=== PATIENT | female | born 1975 | race Hispanic/Latino ===

== ENCOUNTER 2016-08-06 15:34 | Emergency (ER) | payer OTHER ==
[~2016-08-06] VITALS: Ht 157.5 cm; Wt 104.3 kg
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
[2016-08-06 17:35] LABS: ABSOLUTE BASOPHIL COUNT 0 /CUMM (0.0-0.2); ABSOLUTE EOSINOPHIL COUNT 0 /CUMM (0.0-0.7); ABSOLUTE GRANULOCYTE CT 8.6 /CUMM (1.4-6.5); ABSOLUTE LYMPH COUNT 2.4 /CUMM (1.2-3.4); ABSOLUTE MONOCYTE COUNT 0.7 /CUMM (0.10-0.60); BASOPHIL % 0.3 % (0.0-2.0); EOSINOPHIL % 0.4 % (0-5); GRANULOCYTE % 72.6 % (42.2-75.2); HEMATOCRIT 34.4 % (37-47); MEAN CORPUSCULAR HGB 20.3 PG (27.0-31.0); MEAN CORPUSCULAR HGB CONC 30.5 G/DL (33.0-37.0); MEAN CORPUSCULAR VOLUME 66.7 FL (81.0-99.0); MEAN PLATELET VOLUME 7.9 FL (7.4-10.4); PLATELET COUNT 367 /CUMM (130-400); RED BLOOD CELL CT 5.17 /CUMM (4.20-5.40); WHITE BLOOD CELL COUNT 11.8 /CUMM (4.8-10.8)
[2016-08-06] MEDS ORDERED: PREDNISONE20 M1 PO (21:03)
[2016-08-06] MEDS ORDERED: DOXYCYCLINE HY100 M2 PO (21:04)
[2016-08-06] MEDS ORDERED: ADVAIR 250-501 EACH INH (21:04)
[2016-08-06] MEDS ORDERED: PROVENTIL HFA6.7 GM INH (21:04)
[2016-08-06] MEDS ORDERED: NASONEX17 GM NASB (21:04)
[2016-08-06] MEDS ORDERED: AMLODIPINE BESYL5 M1 PO (21:44)
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
[2016-08-07 12:00] VITALS: BP 173/92
== END 2016-08-07 12:21 ==
LOC: ERH 15:34
PROVIDERS: Physician Assistant
DX: F41.9 Anxiety disorder, unspecified (principal)
CPT/HCPCS: 80307; 81001; 81025; 93005; 93010; G0463; G0480

== ENCOUNTER → 2016-10-27 | Day surgery (SDC) | payer OTHER ==
[~2016-10-27] VITALS: Ht 160 cm; Wt 110.7 kg
[~2016-10-27] MED LIST: ADVAIR 250-501 EACH INH; AMLODIPINE BESYL5 M1 PO; DOXYCYCLINE HY100 M2 PO; NASONEX17 GM NASB; PREDNISONE20 M1 PO; PROVENTIL HFA6.7 GM INH
--- NOTE | 2016-10-31 16:52 | Operative Report ---
Operative/Inv Procedure Report Surgery Date: 10/31/16 Name of Procedure: d&c HYSTEROSCOPY Pre-Operative Diagnosis: mETROMENORRHAGIA Post-Operative Diagnosis: SAME Estimated Blood Loss: less than 50ml Surgeon/Taffy Puller: HARIKA SHELLEY MD Anesthesia: moderate sedation Operative/Procedure Note Note: Patient was taken to the operating room placed in dorsal supine position. After adequate anesthesia, patient was prepped and draped for surgery. Examination under anesthesia was performed. CO2 tenaculum was placed on the anterior lip of the cervix gentle downward traction was used. The cervix was dilated 29 Hegar to left insertion of the hysteroscope. Under direct visualization to hysteroscopy was performed using gas hysteroscope was removed and endocervical curettage was performed. And endometrial curettage was performed. All instruments removed from the vagina. The counts were correct the patient was awakened from anesthesia. And transported to recovery room awake and alert. Findings: Normal size uterus no adnexal masses normal cervix normal uterine lining
== END ==
LOC: STS 01:46
DX: N92.1 Excessive and frequent menstruation with irregular cycle (principal); J45.909 Unspecified asthma, uncomplicated
CPT/HCPCS: 81025; 88305; J2250

== ENCOUNTER → 2017-07-20 | Day surgery (SDC) | payer OTHER ==
[~2017-07-20] VITALS: Ht 160 cm; Wt 2.4 kg
--- NOTE | 2017-07-20 18:05 | Operative Report ---
Operative/Inv Procedure Report Surgery Date: 07/20/17 Name of Procedure: D&C cryoablation the uterus under ultrasound guidance Pre-Operative Diagnosis: Menorrhagia Post-Operative Diagnosis: Menorrhagia Estimated Blood Loss: less than 50ml Surgeon/Technical Analyst: Jose ETIENNE,Anita Hill Anesthesia: moderate sedation Operative/Procedure Note Note: Patient was taken the operating room after adequate placement of LMA and anesthesia patient was placed in dorsal supine position the vagina from dorsal fashion the bladder was catheterized with [place] examination of anesthesia will perform a Graves speculum with lateral retractor was placed into the vagina and a single-tooth tenaculum placed on the lip of the cervix gentle downward traction performed patient tolerated that well at this point the curet was placed into the uterus and sharp curettage the endometrial iodoform Procrit Tyzine cervical was performed 2 specimens were sent to pathology under direct visualization of the bladder and felt a cryoprobe was placed into the uterus and an iceberg was formed by scalpel was heated the probe was removed and the patient was returned to prone position WAS removed from vagina patient was awakened from anesthesia and transferred recovery room awake and alert counts correct Findings: Uterus slightly enlarged no adnexal masses otherwise normal anatomy
--- NOTE | 2017-07-21 09:11 | ULTRASOUND REPORT ---
EXAMINATION: Intraoperative ultrasound CLINICAL INFORMATION: 42-year-old female with metromenorrhagia COMPARISON: None. TECHNIQUE: Intraoperative ultrasound was provided for use by Dr. Garcia. A radiologist was not present during imaging. A total of 8 images were saved to PACS. FINDINGS\E\IMPRESSION: Intraoperative ultrasound provided for use by Dr. Garcia. Please see operative note for detailed findings.
== END ==
LOC: STS 03:11 → XRY 12:30
DX: N92.0 Excessive and frequent menstruation with regular cycle (principal); N72 Inflammatory disease of cervix uteri; J45.909 Unspecified asthma, uncomplicated
CPT/HCPCS: 76998; 81025; J0131; J2250

== ENCOUNTER 2017-10-26 06:33 | Inpatient (IN) | payer OTHER ==
[~2017-10-26] VITALS: Ht 160 cm; Wt 112.9 kg
[~2017-10-26 06:33] MED LIST changes: +ADVAIR 100-501 EACH INH; +VENTOLIN HFA18 GM INH
--- NOTE | 2017-10-26 12:17 | Operative Report ---
Operative/Inv Procedure Report Surgery Date: 10/26/17 Name of Procedure: Supracervical hysterectomy and removal of the stents Pre-Operative Diagnosis: Menorrhagia Post-Operative Diagnosis: Same Estimated Blood Loss: 500 Surgeon/Hair Worker: Jose ETIENNE,Anita Hill and Dr. Stef Pascual Anesthesia: general endotracheal tube, block Operative/Procedure Note Note: Procedure note patient was taken to the operating room placed supine position after adequate anesthesia patient was placed in dorsal supine position the vagina was prepped and draped so fashion Dr. Lew placed stents patient was returned spine position the abdomen was prepped and draped so fashion. 2 finger breadths of symptoms pubis in midline skin was cut carried down to rectus fascia. Rectus fascia was dissected bluntly as well as sharply off of the rectus sheath the peritoneal cavity was entered high into the abdomen bluntly Roca O'Vipul placed in usual fashion at this point patient was placed in Trendelenburg she tolerated this well. On at this point the uterus was identified on elevated with a 4 tenaculum the round ligament was suture ligated on the left 1 a ligament on the right was suture ligated times one the bladder flap was developed sharply as well as bluntly sequentially cervical branches uterine artery were clamped and cut and oversewn using 0 to level of the external os specimen was removed using a Bovie the cuff was oversewn running locking suture was indicated interrupted [id number] hemostasis was apparent. The abdomen was area close amounts once until clear I interrupted [id number] were used for hemostasis once again I at this point Mark was applied the surgical cuff tension was removed from the retractor so that bleeding could be observed on hemostasis was apparent. At this point all once was removed from the abdomen peritoneum was reapproximated 0 fascia was reprocessed and to continue sutures #1 on the skin was reapproximated using darren after Bovie coagulation substance tissue sterile dressing was applied the vagina was irrigated found to be hemostatic oral instruments removed from the vagina the stents were removed intact patient was awakened from anesthesia and transferred recovery room awake alert counts correct Findings: Slightly enlarged uterus consistent with adenomyosis normal ovaries bilaterally otherwise normal anatomy
[2017-10-26 16:27] LABS: ABSOLUTE BASOPHIL COUNT 0 /CUMM (0.0-0.2); ABSOLUTE EOSINOPHIL COUNT 0 /CUMM (0.0-0.7); ABSOLUTE GRANULOCYTE CT 14.4 /CUMM (1.4-6.5); ABSOLUTE LYMPH COUNT 0.2 /CUMM (1.2-3.4); ABSOLUTE MONOCYTE COUNT 0.1 /CUMM (0.10-0.60); BASOPHIL % 0 % (0.0-2.0); EOSINOPHIL % 0 % (0-5); HEMATOCRIT 36.1 % (37-47); MEAN CORPUSCULAR HGB 22.1 PG (27.0-31.0); MEAN CORPUSCULAR HGB CONC 31.5 G/DL (33.0-37.0); MEAN CORPUSCULAR VOLUME 70.2 FL (81.0-99.0); PLATELET COUNT 385 /CUMM (130-400); RBC DISTRIBUTION WIDTH 17.8 % (11.5-14.5); RED BLOOD CELL CT 5.14 /CUMM (4.20-5.40)
[2017-10-26 16:28] LABS: WHITE BLOOD CELL COUNT 14.8 /CUMM (4.8-10.8)
[2017-10-26 16:52] LABS: GRANULOCYTE % 97.6 % (42.2-75.2)
[2017-10-27 07:54] LABS: ABSOLUTE BASOPHIL COUNT 0 /CUMM (0.0-0.2); ABSOLUTE EOSINOPHIL COUNT 0 /CUMM (0.0-0.7); ABSOLUTE GRANULOCYTE CT 10.1 /CUMM (1.4-6.5); ABSOLUTE LYMPH COUNT 1.2 /CUMM (1.2-3.4); ABSOLUTE MONOCYTE COUNT 0.5 /CUMM (0.10-0.60); BASOPHIL % 0.1 % (0.0-2.0); EOSINOPHIL % 0 % (0-5); MEAN CORPUSCULAR HGB 22.2 PG (27.0-31.0); MEAN CORPUSCULAR HGB CONC 31.1 G/DL (33.0-37.0); MEAN CORPUSCULAR VOLUME 71.5 FL (81.0-99.0); MEAN PLATELET VOLUME 9.1 FL (7.4-10.4); PLATELET COUNT 358 /CUMM (130-400); RBC DISTRIBUTION WIDTH 17.9 % (11.5-14.5); RED BLOOD CELL CT 4.62 /CUMM (4.20-5.40); WHITE BLOOD CELL COUNT 11.8 /CUMM (4.8-10.8)
[2017-10-27 08:10] LABS: GRANULOCYTE % 85.1 % (42.2-75.2)
--- NOTE | 2017-10-27 08:44 | PN- Post Delivery/GYN ---
Subjective Subjective: NO COMPLAINTS Objective Last 24 Hrs of Vital Signs/I&O Vital Signs Date Time Temp Pulse Resp B/P B/P Pulse O2 O2 Flow FiO2 Mean Ox Delivery Rate 10/27 2115 Nasal 1.0L Cannula Physical Exam: PE WELL BUILT WFIN NAD ABD SOFT NT INCISION CDI EXT -EDEMA -GERA ASSESS S/PSUPRA CERVICAL HYST HARI N ADVAVCE DIET ADVANCE AMBULATION Assessment/Plan Assessment/Plan SE ABOVE
--- NOTE | 2017-10-27 15:26 | Operative Report ---
Operative/Inv Procedure Report Surgery Date: 10/26/17 Name of Procedure: cystoscopy: bilateral stent insertion Pre-Operative Diagnosis: menometorrhagia s Post-Operative Diagnosis: same Estimated Blood Loss: scant Surgeon/Community Representative: MD Vipin, Raul-urology Anesthesia: general endotracheal tube Drains: 16 fr whatley Specimens: ucx Complications: none Operative/Procedure Note Note: The patient was taken to the operating room and placed on the OR table in supine position. Timeout was performed, with the patient awake, to confirm identify, planned procedures, anesthesia, antibiotics and other pertinent nancy-operative information. After adequate anesthesia, and IV antibiotics, the patient was placed in lithotomy Yellow-fin stirrups. She was then draped and prepped in the usual surgical fashion, including a vaginal prep. A 22 Lebanese cystoscope sheath with a 30 angle lens was inserted into the bladder without significant difficulty. The bladder was thoroughly and systematically examined, and was noted to be free of tumor, free of stone, free of endometriosis. Both ureteral orifices were in their orthotopic positions with clear reflux bilaterally. Under direct visualization the left orifice was intubated with a 5 Lebanese whistle-tip catheter, which was advanced easily into the left kidney pelvis. The right ureteral orifice was intubated with a second 5 Lebanese ureteral whistle tip catheter, and advanced into the right renal pelvis without difficulty. For identification purposes the blue marked stent went into the left kidney and the right ureteral stent was marked red. Urine culture was obtained and sent to pathology. The cystoscope was then removed leaving both stents in proper place. An 18 Lebanese Whatley catheter was inserted draining clear fluid and 10 mL of sterile water was then placed in the balloon. The ends ureteral stents, which protruded externally, were taped to the Whatley catheter in order to secure their position. The individual ureteral stents were then connected to their individual drainage devices. The patient tolerated the procedure well. All sponge needle and instrument count were correct at the end of this procedure. The patient was then placed in supine position with Venodyne's in place. At this point, Dr.Vander Luna was able to proceed with the patient's surgery. Discharge Disposition: proceed with dr. braxton CC: Raul Lew MD
[2017-10-28] MEDS ORDERED: DOCUSATE SODIU100 M3 PO (10:22)
[2017-10-28] MEDS ORDERED: MILK OF MA400 MG/52 PO (10:22)
[2017-10-28] MEDS ORDERED: IBUPROFEN800 M1 PO (10:22)
[2017-10-28] MEDS ORDERED: HYDROMORPHONE HC2 M1 PO (10:22)
== END 2017-10-28 13:20 | DRG 513 ==
LOC: SDA 06:33 → STS 07:00 → SDA 07:00 → EDSTATUS 07:00 → ENRESERV 12:46 → ENTRNSPT 14:11 → EDTRNSPTSTS 14:25 → EDTRNSPT 14:25 → GNO 14:33 → CMPTRNSPT 14:49 → GNO 10-28 13:20
PROVIDERS: Specialist
PROC: 0UT90ZL Resection of Uterus, Supracervical, Open Approach (ICD-10-PCS; principal; 2017-10-26)
PROC: 0T788DZ Dilation of Bilateral Ureters with Intraluminal Device, Via Natural or Artificial Opening Endoscopic (ICD-10-PCS; 2017-10-26)
PROC: 3E0T3BZ Introduction of Anesthetic Agent into Peripheral Nerves and Plexi, Percutaneous Approach (ICD-10-PCS; 2017-10-26)
DX: N80.0 Endometriosis of uterus (principal); N92.0 Excessive and frequent menstruation with regular cycle; J45.909 Unspecified asthma, uncomplicated; Z88.0 Allergy status to penicillin
CPT/HCPCS: GNOS; 36415; 81001; 81025; 87086; C9399; J0131; J1170; J1200; J1580; J1650; J1885; J3490